=== PATIENT | male | born 1970 ===

== ENCOUNTER 2022-01-18 09:30 | Emergency (ER) | payer OTHER ==
[~2022-01-18] VITALS: Ht 188 cm; Wt 90.7 kg
[2022-01-18] MEDS ORDERED: ZOFRAN8 MG (09:57)
[2022-01-18] MEDS ORDERED: CIPRO500 MG PO (18:07)
[2022-01-18] MEDS ORDERED: ONDANSETRON ODT8 MG PO (18:15)
== END 2022-01-18 18:24 | disposition home or self-care (01) ==
LOC: ER 09:30
DX: N39.0 Urinary tract infection, site not specified (principal); R11.2 Nausea with vomiting, unspecified; R00.0 Tachycardia, unspecified; C22.9 Malignant neoplasm of liver, not specified as primary or secondary